=== PATIENT | female | born 1965 | race Hispanic/Latino ===

== ENCOUNTER → 2022-11-17 15:37 | Outpatient (CLI) | payer OTHER, MEDICAID, SELFPAY ==
--- NOTE | 2022-11-17 15:38 | DI.RAD.S_ITS ---
PROCEDURE: XR LUMBAR SPINE MIN 4V INDICATIONS: Low back pain TECHNIQUE: 5 views of the lumbar spine were acquired, including bilateral oblique views. COMPARISON: None. FINDINGS: Bones: 5 nonrib-bearing vertebrae are present. There is normal bony alignment. No vertebral body compression fractures. No suspicious bony lesions. Mild multilevel disc space narrowing and endplate osteophyte formation. Facet hypertrophy throughout the mid and lower lumbar spine. Soft tissues: Overlying bowel gas pattern is normal. No suspicious soft tissue calcifications. IMPRESSION: Multilevel degenerative disc and facet disease. No acute fracture. No osseous lesion. If symptoms and/or clinical suspicion for pathology persist, further assessment with repeat, or advanced imaging (e.g., CT, MRI, or bone scan) may be helpful for further assessment. Dictated by: Cherelle Fierro M.D. on 11/17/2022 at 16:30 Transcribed by: SUSAN on 11/17/2022 at 16:30 Approved by: Cherelle Fierro M.D. on 11/17/2022 at 16:58
== END ==
PROVIDERS: Referring Provider Nurse Practitioner Family; Visit Provider Nurse Practitioner Family
DX: M51.36 Other intervertebral disc degeneration, lumbar region (principal); M54.50 Low back pain, unspecified
CPT/HCPCS: 72110

== ENCOUNTER 2022-12-26 13:03 | Emergency (ER) | payer OTHER, MEDICAID, SELFPAY ==
[2022-12-26 13:13] VITALS: BP 119/58; PULSE 99; RESP 18; TEMP 37.1; O2SAT 99
--- NOTE | 2022-12-26 13:17 | DI.RAD.S_ITS ---
PROCEDURE: XR CHEST 2V INDICATIONS: cough, body aches, shortness of breath TECHNIQUE: 2 views of the chest were acquired. COMPARISON: None. FINDINGS: Surgical changes and devices: None. Lungs and pleura: Lungs are clear. No pleural effusions or pneumothorax. Mediastinum: Mediastinal contours are normal. Heart size is normal. Bones and chest wall: No suspicious bony abnormalities. Soft tissues appear unremarkable. IMPRESSION: No acute cardiopulmonary findings Approved by: Prabhu Morales M.D. on 12/26/2022 at 13:21
[2022-12-26] MEDS: ACETAMINOPHEN 325 MG TABLET 975 MG PO (13:31)
[2022-12-26 14:07] LABS: Influenza A - CEPHEID Flu A NEGATIVE (NEGATIVE); Influenza B - CEPHEID Flu B NEGATIVE (NEGATIVE); Respiratory Syncytial Virus Negative (Negative)
[2022-12-26 14:10] LABS: COVID-19 CEPHEID 4-PLEX PCR Negative (Negative)
[2022-12-26] MEDS: KETOROLAC 30 MG/ML VIAL 15 MG IV (15:17)
[2022-12-26] MEDS: LIDOCAINE PATCH 1 EACH ADH..PATCH TOP (15:18)
[2022-12-26] MEDS: SODIUM CHLORIDE 0.9% 1,000 ML 1000 ML IV (15:18)
[2022-12-26] MEDS: METOCLOPRAMIDE 10 MG/2 ML INJ IV (15:18)
[2022-12-26 15:22] VITALS: PULSE 73; O2SAT 97
[2022-12-26 15:24] LABS: Add Manual Diff / Slide Review NO; Basophils Absolute Auto 0 /uL (0-100); Basophils Percent Auto 0.7 % (0-2); Eosinophils Absolute Auto 0 /uL (0-450); Eosinophils Percent Auto 0.2 % (2-4); Hematocrit 40.7 % (36-46); Hemoglobin 13.8 g/dL (12.0-16.0); Lymphocytes Absolute Auto 1200 /uL (1100-4500); Lymphocytes Percent Auto 31.9 % (25-40); Mean Corpuscular HGB Conc 33.9 % (30-36); Mean Corpuscular Hemoglobin 29.2 PG (26-34); Mean Corpuscular Volume 86.3 fL (80-100); Monocytes Absolute Auto 500 /uL (0-900); Monocytes Percent Auto 13.5 % (3-14); Neutrophils Absolute Auto 2000 /uL (1500-7000); Neutrophils Percent Auto 53.7 % (50-75); Platelet Count 178 X10^3/uL (150-400); Red Blood Cell Count 4.71 X10^6/uL (4.0-5.2); Red Cell Distribution Width 14.2 % (11.6-14.8); White Blood Cell Count 3.6 X10^3/uL (4.5-11.0)
[2022-12-26 15:30] VITALS: PULSE 68; O2SAT 98
[2022-12-26] MEDS: diphenhydrAMINE 50 MG/ML VIAL 25 MG IV (15:32)
[2022-12-26 15:34] LABS: Alanine Aminotransferase 27 IU/L (<35); Albumin 4.3 g/dL (3.5-5.0); Albumin Globulin Ratio 1.2 (1.0-2.8); Alkaline Phosphatase 82 U/L (38-126); Aspartate Aminotransferase 29 IU/L (14-36); BUN Creatinine Ratio 14.7 (6-22); Bilirubin Total 0.4 mg/dL (0.2-1.3); Blood Urea Nitrogen 14 mg/dL (7-17); Calcium 8.6 mg/dL (8.4-10.2); Carbon Dioxide 26 mmol/L (22-32); Chloride 100 mmol/L (98-107); Creatine Kinase 62 U/L (30-135); Estimated Glomerular Filt Rate > 60 mL/min (>60); Globulin 3.7 g/dL (1.7-4.1); Glucose 110 mg/dL (70-100); HEMOLYSIS < 15 (0-50); Lipase 104 U/L (23-300); Potassium 3.5 mmol/L (3.4-5.1); Sodium 137 mmol/L (137-145)
[2022-12-26 15:46] LABS: NT-proBNP (BNP-Adult 18+) 24 pg/mL (<125); Troponin I < 0.012 ng/mL (0.01-0.034)
[2022-12-26 16:08] VITALS: PULSE 69; O2SAT 98
[2022-12-26 16:09] VITALS: BP 120/58; PULSE 67; O2SAT 99
--- NOTE | 2022-12-26 16:12 | ED.GENADULT ---
HPI - General Adult <William Hodgson PA-C - Last Filed: 12/26/22 20:45> General Chief complaint: Upper Respiratory Symptoms Stated complaint: hard to breathe/pain from head to feet Time Seen by Provider: 12/26/22 13:18 Source: patient Mode of arrival: Ambulatory History of Present Illness HPI narrative: 57-year-old female with no reported past medical history presents to the ED complaining of lower back pain and headache for the past 2 days. Patient denies fever, chills, rhinorrhea, cough, sore throat, shortness of breath, chest pain, nausea, vomiting, abdominal pain, dysuria, lightheadedness, dizziness, syncope. Patient denies numbness, tingling, weakness, saddle paresthesia, urinary hesitancy, urinary urgency, urinary frequency.. Patient has a history of lower back pain, had a x-ray done in October 2022 with no acute findings. Patient states she is had back pain for about 9 years, ever since she suffered a fall. No new trauma. Related Data Previous Rx's Medication Instructions Recorded ibuprofen 600 mg tablet 600 mg PO Q8H PRN pain #30 tabs 11/17/22 Allergies Allergy/AdvReac Type Severity Reaction Status Date / Time No Known Drug Allergies Allergy Verified 12/26/22 13:17 Review of Systems <William Hodgson PA-C - Last Filed: 12/26/22 20:45> Review of Systems ROS Unobtainable: All systems reviewed & are unremarkable except as noted in HPI and below Constitutional Constitutional: Denies chills, Reports fatigue, Denies fever(s), Denies frequent falls, Reports headache(s), Reports lethargy and Denies weakness Eyes Eyes: Denies change in vision, Denies eye discharge, Denies irritation and Denies loss of vision ENT Ears, Nose, Mouth, and Throat: Denies change in voice, Denies dizziness, Reports headache(s), Denies neck pain, Denies sore throat and Denies throat swelling Cardiovascular Cardiovascular: Denies chest pain, Denies irregular heart rhythm, Denies lightheadedness, Denies palpitations, Denies dyspnea, Denies dyspnea on exertion and Denies orthopnea Respiratory Respiratory: Denies cough, Denies dyspnea, Denies dyspnea on exertion and Denies wheezing Gastrointestinal Gastrointestinal: Denies abdominal pain, Denies change in bowel habits, Denies diarrhea, Denies nausea and Denies vomiting Genitourinary Genitourinary: Denies hematuria, Denies flank pain, Denies urinary incontinence and Denies urinary urgency Musculoskeletal Musculoskeletal: Reports back pain, Denies muscle weakness, Denies neck pain, Denies numbness and Denies tingling Integumentary/Breasts Skin/Breast: Denies pruritus, Denies erythema, Denies rash and Denies wounds Neurologic Neurologic: Denies behavioral changes, Denies confusion, Denies dizziness, Denies frequent falls, Reports headache(s), Denies loss of vision, Denies numbness, Denies tingling and Denies weakness Psychiatric Psychiatric: Denies anxiety, Denies behavioral changes, Denies confusion, Denies depression, Denies homicidal ideation and Denies suicidal ideation Endocrine Endocrine: Reports fatigue, Denies flushing and Denies palpitations Hematologic/Lymphatic Hematologic/Lymphatic: Denies easy bruising Allergic/Immunologic Allergic/Immunologic: Denies urticaria, Denies throat swelling and Denies wheezing Patient History <William Hodgson PA-C - Last Filed: 12/26/22 20:45> Social History Smoking Status: Never smoker Smoking Status: Never smoker alcohol intake frequency: 0-2 drinks per day Substance Use Type: does not use Exam <William Hodgson PA-C - Last Filed: 12/26/22 20:45> Narrative Exam Narrative: Const General:?cooperative, healthy appearing and comfortable [facility] Head:?normal to inspection Ears:?hearing grossly normal bilaterally Nose:?external nose normal Face and sinus:?normal facial exam and sinuses nontender Mouth:?oral mucosae normal Throat:?posterior oropharynx normal Eyes General:?appearance normal, both eyes and all related structures Neck Neck:?normal visual inspection and no lymphadenopathy noted Resp Effort & Inspection:?normal respiratory effort Auscultation:?clear to auscultation bilaterally Cardio Rate:?regular rate Rhythm:?regular rhythm Neuro General:?patient alert, patient awake and patient oriented x3; PERRLA; CN 1 through 12 intact bilaterally; Initial Vital Signs Initial Vital Signs: Vital Signs Temperature 98.7 F 12/26/22 13:13 Pulse Rate 99 H 12/26/22 13:13 Respiratory Rate 18 12/26/22 13:13 Blood Pressure 119/58 L 12/26/22 13:13 Pulse Oximetry 99 12/26/22 13:13 Oxygen Delivery Method Room Air 12/26/22 13:13 <Miky Burks MD - Last Filed: 01/02/23 08:05> Initial Vital Signs Initial Vital Signs: Vital Signs Temperature 98.7 F 12/26/22 13:13 Pulse Rate 99 H 12/26/22 13:13 Respiratory Rate 18 12/26/22 13:13 Blood Pressure 119/58 L 12/26/22 13:13 Pulse Oximetry 99 12/26/22 13:13 Oxygen Delivery Method Room Air 12/26/22 13:13 Course <William Hodgson PA-C - Last Filed: 12/26/22 20:45> Orders Ordered: Discontinued Medications Acetaminophen (Acetaminophen 325 Mg Tablet) 975 mg PO NOW ONE Stop: 12/26/22 13:18 Last Admin: 12/26/22 13:31 Dose: 975 mg Documented By: DRE Diphenhydramine HCl (Diphenhydramine 50 Mg/Ml Vial) 25 mg IV Q4HR PRN PRN Reason: Itching Last Admin: 12/26/22 15:32 Dose: 25 mg Documented By: DRE Sodium Chloride (Normal Saline 0.9%) 1,000 mls @ 1,000 mls/hr IV BOLUS ONE Stop: 12/26/22 15:50 Last Infusion: 12/26/22 16:20 Dose: 0 mls/hr Documented By: Admin: 12/26/22 15:18 Dose: 1,000 mls/hr Documented By: AMU Ketorolac Tromethamine (Ketorolac 30 Mg/Ml Vial) 15 mg IV NOW ONE Stop: 12/26/22 14:52 Last Admin: 12/26/22 15:17 Dose: 15 mg Documented By: AMU Lidocaine (Lidocaine Patch 1 Each Adh..Patch) 1 each TOP NOW ONE Stop: 12/26/22 14:54 Last Admin: 12/26/22 15:18 Dose: 1 each Documented By: AMU Metoclopramide HCl (Metoclopramide 10 Mg/2 Ml Inj) 10 mg IV NOW ONE Stop: 12/26/22 14:53 Last Admin: 12/26/22 15:18 Dose: 10 mg Documented By: AMU Vital Signs Vital signs: Vital Signs - 8 hr 12/26/22 13:13 12/26/22 15:22 12/26/22 15:30 Temperature 98.7 F Pulse Rate 99 H 73 68 Respiratory Rate 18 Blood Pressure 119/58 L Pulse Oximetry 99 97 98 Oxygen Delivery Method Room Air 12/26/22 16:08 12/26/22 16:09 12/26/22 16:09 Temperature Pulse Rate 69 67 Respiratory Rate Blood Pressure 120/58 L Pulse Oximetry 98 99 Oxygen Delivery Method Room Air 12/26/22 16:30 12/26/22 16:30 Temperature Pulse Rate 67 Respiratory Rate Blood Pressure 130/59 L Pulse Oximetry 100 Oxygen Delivery Method Room Air <Miky Burks MD - Last Filed: 01/02/23 08:05> Orders Ordered: Discontinued Medications Acetaminophen (Acetaminophen 325 Mg Tablet) 975 mg PO NOW ONE Stop: 12/26/22 13:18 Last Admin: 12/26/22 13:31 Dose: 975 mg Documented By: DRE Diphenhydramine HCl (Diphenhydramine 50 Mg/Ml Vial) 25 mg IV Q4HR PRN PRN Reason: Itching Last Admin: 12/26/22 15:32 Dose: 25 mg Documented By: DRE Sodium Chloride (Normal Saline 0.9%) 1,000 mls @ 1,000 mls/hr IV BOLUS ONE Stop: 12/26/22 15:50 Last Infusion: 12/26/22 16:20 Dose: 0 mls/hr Documented By: Admin: 12/26/22 15:18 Dose: 1,000 mls/hr Documented By: LIBIA Ketorolac Tromethamine (Ketorolac 30 Mg/Ml Vial) 15 mg IV NOW ONE Stop: 12/26/22 14:52 Last Admin: 12/26/22 15:17 Dose: 15 mg Documented By: LIBIA Lidocaine (Lidocaine Patch 1 Each Adh..Patch) 1 each TOP NOW ONE Stop: 12/26/22 14:54 Last Admin: 12/26/22 15:18 Dose: 1 each Documented By: LIBIA Metoclopramide HCl (Metoclopramide 10 Mg/2 Ml Inj) 10 mg IV NOW ONE Stop: 12/26/22 14:53 Last Admin: 12/26/22 15:18 Dose: 10 mg Documented By: AMU Vital Signs Vital signs: Vital Signs - 8 hr 12/26/22 13:13 12/26/22 15:22 12/26/22 15:30 Temperature 98.7 F Pulse Rate 99 H 73 68 Respiratory Rate 18 Blood Pressure 119/58 L Pulse Oximetry 99 97 98 Oxygen Delivery Method Room Air 12/26/22 16:08 12/26/22 16:09 12/26/22 16:09 Temperature Pulse Rate 69 67 Respiratory Rate Blood Pressure 120/58 L Pulse Oximetry 98 99 Oxygen Delivery Method Room Air 12/26/22 16:30 12/26/22 16:30 Temperature Pulse Rate 67 Respiratory Rate Blood Pressure 130/59 L Pulse Oximetry 100 Oxygen Delivery Method Room Air Medical Decision Making <William Hodgson PA-C - Last Filed: 12/26/22 20:45> Lab Data 12/26/22 15:16 12/26/22 15:16 Labs: Lab Results 12/26/22 12/26/22 12/26/22 Range/Units 13:18 15:16 15:16 WBC 3.6 L (4.5-11.0) X10^3/uL RBC 4.71 (4.0-5.2) X10^6/uL Hgb 13.8 (12.0-16.0) g/dL Hct 40.7 (36-46) % MCV 86.3 (80-100) fL MCH 29.2 (26-34) PG MCHC 33.9 (30-36) % RDW 14.2 (11.6-14.8) % Plt Count 178 (150-400) X10^3/uL Neut % (Auto) 53.7 (50-75) % Lymph % (Auto) 31.9 (25-40) % [place] % (Auto) 13.5 (3-14) % Eos % (Auto) 0.2 L (2-4) % Baso % (Auto) 0.7 (0-2) % Neut # (Auto) 2000 (2690-2561) /uL Lymph # (Auto) 1200 (3241-8413) /uL [place] # (Auto) 500 (0-900) /uL Eos # (Auto) 0 (0-450) /uL Baso # (Auto) 0 (0-100) /uL Sodium 137 (137-145) mmol/L Potassium 3.5 (3.4-5.1) mmol/L Chloride 100 (98-107) mmol/L Carbon Dioxide 26 (22-32) mmol/L BUN 14 (7-17) mg/dL Creatinine 0.95 (0.52-1.04) mg/dL Estimated GFR > 60 (>60) mL/min BUN/Creatinine Ratio 14.7 (6-22) Glucose 110 H (70-100) mg/dL Calcium 8.6 (8.4-10.2) mg/dL Total Bilirubin 0.4 (0.2-1.3) mg/dL AST 29 (14-36) IU/L ALT 27 (<35) IU/L Alkaline Phosphatase 82 (38-126) U/L Total Creatine Kinase 62 (30-135) U/L CK-MB (CK-2) TNP CK-MB (CK-2) Rel Index TNP Troponin I < 0.012 (0.01-0.034) ng/mL NT-Pro-B Natriuret Pep 24 (<125) pg/mL Total Protein 8.0 (6.3-8.2) g/dL Albumin 4.3 (3.5-5.0) g/dL Globulin 3.7 (1.7-4.1) g/dL Albumin/Globulin Ratio 1.2 (1.0-2.8) Lipase 104 (23-300) U/L Urine RBC (0-5/HPF) Urine WBC (0-5/HPF) Ur Squamous Epith Cells (0-5/HPF) Ur Transition Epith Cell (0-5/HPF) Ur Renal Epithelial Cell (0-1/HPF) Urine Bacteria (None) Ur Culture Indicated? SARS-CoV-2 (PCR) Negative (Negative) Influenza A (RT-PCR) Flu a negative (NEGATIVE) Influenza B (RT-PCR) Flu b negative (NEGATIVE) RSV (PCR) Negative (Negative) 12/26/22 Range/Units 16:13 WBC (4.5-11.0) X10^3/uL RBC (4.0-5.2) X10^6/uL Hgb (12.0-16.0) g/dL Hct (36-46) % MCV (80-100) fL MCH (26-34) PG MCHC (30-36) % RDW (11.6-14.8) % Plt Count (150-400) X10^3/uL Neut % (Auto) (50-75) % Lymph % (Auto) (25-40) % [place] % (Auto) (3-14) % Eos % (Auto) (2-4) % Baso % (Auto) (0-2) % Neut # (Auto) (0925-4989) /uL Lymph # (Auto) (4178-9048) /uL [place] # (Auto) (0-900) /uL Eos # (Auto) (0-450) /uL Baso # (Auto) (0-100) /uL Sodium (137-145) mmol/L Potassium (3.4-5.1) mmol/L Chloride (98-107) mmol/L Carbon Dioxide (22-32) mmol/L BUN (7-17) mg/dL Creatinine (0.52-1.04) mg/dL Estimated GFR (>60) mL/min BUN/Creatinine Ratio (6-22) Glucose (70-100) mg/dL Calcium (8.4-10.2) mg/dL Total Bilirubin (0.2-1.3) mg/dL AST (14-36) IU/L ALT (<35) IU/L Alkaline Phosphatase (38-126) U/L Total Creatine Kinase (30-135) U/L CK-MB (CK-2) CK-MB (CK-2) Rel Index Troponin I (0.01-0.034) ng/mL NT-Pro-B Natriuret Pep (<125) pg/mL Total Protein (6.3-8.2) g/dL Albumin (3.5-5.0) g/dL Globulin (1.7-4.1) g/dL Albumin/Globulin Ratio (1.0-2.8) Lipase (23-300) U/L Urine RBC 0-1/hpf (0-5/HPF) Urine WBC 5-10/hpf H (0-5/HPF) Ur Squamous Epith Cells 5-10 /hpf H (0-5/HPF) Ur Transition Epith Cell 10-30/hpf H (0-5/HPF) Ur Renal Epithelial Cell 0-1/hpf (0-1/HPF) Urine Bacteria Moderate (10-30) H (None) Ur Culture Indicated? Specimen cultured SARS-CoV-2 (PCR) (Negative) Influenza A (RT-PCR) (NEGATIVE) Influenza B (RT-PCR) (NEGATIVE) RSV (PCR) (Negative) Urine Dip Bedside Urine Glucose Negative Bedside Urine Bilirubin - Negative Bedside Urine Ketone - Negative Urine Specific [place] 1.005 Bedside Urine Occult Blood - Negative Bedside Urine pH 6.0 Bedside Urine Protein - Negative Bedside Urine Urobilinogen - Negative Bedside Urine Nitrite - Negative Bedside Urine Leukocytes ++ 125 Esterase Point of care testing: Urine Dip Bedside Urine Glucose Negative Bedside Urine Bilirubin - Negative Bedside Urine Ketone - Negative Urine Specific [place] 1.005 Bedside Urine Occult Blood - Negative Bedside Urine pH 6.0 Bedside Urine Protein - Negative Bedside Urine Urobilinogen - Negative Bedside Urine Nitrite - Negative Bedside Urine Leukocytes ++ 125 Esterase MDM Narrative Medical decision making narrative: 57-year-old female with no reported past medical history presents to the ED complaining of lower back pain and headache for the past 2 days. Physical exam is reassuring, patient is neurologically intact. Concern for ACS versus primary headache versus musculoskeletal sprain/strain versus URI versus UTI versus other. Will obtain labs, EKG, chest x-ray, troponin, UA, will treat headache and back pain with Toradol, Tylenol, IV fluids, Reglan, Benadryl. Will reassess. Patient's workup was unremarkable. EKG was normal sinus rhythm, no acute ST-T changes. Labs, chest x-ray within normal limits. UA was positive for a UTI. Patient's symptoms significantly improved with IV fluids, Toradol, Tylenol, Reglan, Benadryl. Discussed findings with patient. Prescribed antibiotics for the UTI. Patient agrees to follow-up with the PCP. ED return precautions were discussed with patient. Patient verbalized understanding. Medical records reviewed: Yes <Miky Burks MD - Last Filed: 01/02/23 08:05> Lab Data Labs: Lab Results 12/26/22 12/26/22 12/26/22 Range/Units 13:18 15:16 15:16 WBC 3.6 L (4.5-11.0) X10^3/uL RBC 4.71 (4.0-5.2) X10^6/uL Hgb 13.8 (12.0-16.0) g/dL Hct 40.7 (36-46) % MCV 86.3 (80-100) fL MCH 29.2 (26-34) PG MCHC 33.9 (30-36) % RDW 14.2 (11.6-14.8) % Plt Count 178 (150-400) X10^3/uL Neut % (Auto) 53.7 (50-75) % Lymph % (Auto) 31.9 (25-40) % [place] % (Auto) 13.5 (3-14) % Eos % (Auto) 0.2 L (2-4) % Baso % (Auto) 0.7 (0-2) % Neut # (Auto) 2000 (5729-8969) /uL Lymph # (Auto) 1200 (9856-0321) /uL [place] # (Auto) 500 (0-900) /uL Eos # (Auto) 0 (0-450) /uL Baso # (Auto) 0 (0-100) /uL Sodium 137 (137-145) mmol/L Potassium 3.5 (3.4-5.1) mmol/L Chloride 100 (98-107) mmol/L Carbon Dioxide 26 (22-32) mmol/L BUN 14 (7-17) mg/dL Creatinine 0.95 (0.52-1.04) mg/dL Estimated GFR > 60 (>60) mL/min BUN/Creatinine Ratio 14.7 (6-22) Glucose 110 H (70-100) mg/dL Calcium 8.6 (8.4-10.2) mg/dL Total Bilirubin 0.4 (0.2-1.3) mg/dL AST 29 (14-36) IU/L ALT 27 (<35) IU/L Alkaline Phosphatase 82 (38-126) U/L Total Creatine Kinase 62 (30-135) U/L CK-MB (CK-2) TNP CK-MB (CK-2) Rel Index TNP Troponin I < 0.012 (0.01-0.034) ng/mL NT-Pro-B Natriuret Pep 24 (<125) pg/mL Total Protein 8.0 (6.3-8.2) g/dL Albumin 4.3 (3.5-5.0) g/dL Globulin 3.7 (1.7-4.1) g/dL Albumin/Globulin Ratio 1.2 (1.0-2.8) Lipase 104 (23-300) U/L Urine RBC (0-5/HPF) Urine WBC (0-5/HPF) Ur Squamous Epith Cells (0-5/HPF) Ur Transition Epith Cell (0-5/HPF) Ur Renal Epithelial Cell (0-1/HPF) Urine Bacteria (None) Ur Culture Indicated? SARS-CoV-2 (PCR) Negative (Negative) Influenza A (RT-PCR) Flu a negative (NEGATIVE) Influenza B (RT-PCR) Flu b negative (NEGATIVE) RSV (PCR) Negative (Negative) 12/26/22 Range/Units 16:13 WBC (4.5-11.0) X10^3/uL RBC (4.0-5.2) X10^6/uL Hgb (12.0-16.0) g/dL Hct (36-46) % MCV (80-100) fL MCH (26-34) PG MCHC (30-36) % RDW (11.6-14.8) % Plt Count (150-400) X10^3/uL Neut % (Auto) (50-75) % Lymph % (Auto) (25-40) % [place] % (Auto) (3-14) % Eos % (Auto) (2-4) % Baso % (Auto) (0-2) % Neut # (Auto) (6896-0965) /uL Lymph # (Auto) (3624-1208) /uL [place] # (Auto) (0-900) /uL Eos # (Auto) (0-450) /uL Baso # (Auto) (0-100) /uL Sodium (137-145) mmol/L Potassium (3.4-5.1) mmol/L Chloride (98-107) mmol/L Carbon Dioxide (22-32) mmol/L BUN (7-17) mg/dL Creatinine (0.52-1.04) mg/dL Estimated GFR (>60) mL/min BUN/Creatinine Ratio (6-22) Glucose (70-100) mg/dL Calcium (8.4-10.2) mg/dL Total Bilirubin (0.2-1.3) mg/dL AST (14-36) IU/L ALT (<35) IU/L Alkaline Phosphatase (38-126) U/L Total Creatine Kinase (30-135) U/L CK-MB (CK-2) CK-MB (CK-2) Rel Index Troponin I (0.01-0.034) ng/mL NT-Pro-B Natriuret Pep (<125) pg/mL Total Protein (6.3-8.2) g/dL Albumin (3.5-5.0) g/dL Globulin (1.7-4.1) g/dL Albumin/Globulin Ratio (1.0-2.8) Lipase (23-300) U/L Urine RBC 0-1/hpf (0-5/HPF) Urine WBC 5-10/hpf H (0-5/HPF) Ur Squamous Epith Cells 5-10 /hpf H (0-5/HPF) Ur Transition Epith Cell 10-30/hpf H (0-5/HPF) Ur Renal Epithelial Cell 0-1/hpf (0-1/HPF) Urine Bacteria Moderate (10-30) H (None) Ur Culture Indicated? Specimen cultured SARS-CoV-2 (PCR) (Negative) Influenza A (RT-PCR) (NEGATIVE) Influenza B (RT-PCR) (NEGATIVE) RSV (PCR) (Negative) Urine Dip Bedside Urine Glucose Negative Bedside Urine Bilirubin - Negative Bedside Urine Ketone - Negative Urine Specific [place] 1.005 Bedside Urine Occult Blood - Negative Bedside Urine pH 6.0 Bedside Urine Protein - Negative Bedside Urine Urobilinogen - Negative Bedside Urine Nitrite - Negative Bedside Urine Leukocytes ++ 125 Esterase Point of care testing: Urine Dip Bedside Urine Glucose Negative Bedside Urine Bilirubin - Negative Bedside Urine Ketone - Negative Urine Specific [place] 1.005 Bedside Urine Occult Blood - Negative Bedside Urine pH 6.0 Bedside Urine Protein - Negative Bedside Urine Urobilinogen - Negative Bedside Urine Nitrite - Negative Bedside Urine Leukocytes ++ 125 Esterase Discharge Plan Departure Patient Disposition: Home Clinical Impression: UTI (urinary tract infection) Instructions: DI for Urinary Tract Infection (UTI) Activity Restrictions/Additional Instructions: You were evaluated in the ED today for a headache and back pain. Your labs, chest x-ray, EKG were normal. Your urine shows that you have a urinary tract infection, for which you are being prescribed an antibiotic. Please take the antibiotic as prescribed. Your headache and back pain improved with the medications in the ED. You may also take ibuprofen, Tylenol for your back pain and headache. Please return to the ED if you experience chest pain, shortness of breath, numbness, tingling, weakness. Prescriptions: No Action ibuprofen 600 mg tablet 600 mg PO Q8H PRN (Reason: pain) Qty: 30 0RF Referrals: Miscellaneous,Doctor, [Primary Care Provider] - Stand Alone Forms: Patient Portal/API <Miky Burks MD - Last Filed: 01/02/23 08:05> Cosign ED Attending Karinaature Attestation: I was immediately available in the department for consultation. ?This documentation has been reviewed and I agree with assessment and plan. Supervised by Mkiy Burks MD
[2022-12-26 16:30] VITALS: BP 130/59; PULSE 67; O2SAT 100
[2022-12-26 16:36] LABS: Bacteria Urine Moderate (10-30); Culture Indicated Urine Specimen Cultured; RBC Urine 0-1/HPF (0-5/HPF); Renal Epithelial Cells Urine 0-1/HPF (0-1/HPF); Squamous Epithelial Cell Urine 5-10 /HPF (0-5/HPF); Transitional Epi Cells Urine 10-30/HPF (0-5/HPF); WBC Urine 5-10/HPF (0-5/HPF)
== END 2022-12-26 17:05 | disposition home or self-care (01) ==
PROVIDERS: Emergency Medicine; Emergency Provider Student in an Organized Health Care Education/Training Program
DX: N39.0 Urinary tract infection, site not specified (principal); R07.9 Chest pain, unspecified; Z20.822 Contact with and (suspected) exposure to COVID-19
CPT/HCPCS: 0241U; 36415; 71046; 80053; 81003; 81015; 82550; 83690; 83880; 84484; 85025; 87086; 93005; 96361; 96374; 96375; 99284; J1200; J1885; J2765

== ENCOUNTER → 2023-01-04 14:57 | Outpatient (CLI) | payer OTHER, MEDICAID, SELFPAY ==
--- NOTE | 2023-01-04 | DI.RAD.S_ITS ---
PROCEDURE: XR CERVICAL SPINE 2V OR 3V INDICATIONS: neck pain TECHNIQUE: 3 view(s) of the cervical spine were acquired. COMPARISON: None. FINDINGS: Bones: No fractures or dislocations to the C7 level. The lateral masses of C1 appear intact on the odontoid view. No suspicious bony lesions. Multilevel disc space narrowing and endplate osteophyte formation, worst at C5-C6, indicating degenerative disc disease. Facet hypertrophy throughout the mid and lower cervical spine. Soft tissues: No prevertebral soft tissue swelling. IMPRESSION: 1. Multilevel degenerative disc and facet disease. 2. No acute fracture. No osseous lesion. If symptoms and/or clinical suspicion for pathology persist, further assessment with repeat, or advanced imaging (e.g., CT, MRI, or bone scan) may be helpful for further assessment. Dictated by: Cherelle Fierro M.D. on 01/04/2023 at 16:13 Transcribed by: SUSAN on 01/04/2023 at 16:14 Approved by: Cherelle Fierro M.D. on 01/04/2023 at 16:40
== END ==
PROVIDERS: Family Provider Registered Nurse; PCP Registered Nurse; Referring Provider Registered Nurse; Visit Provider Registered Nurse
DX: M50.322 Other cervical disc degeneration at C5-C6 level (principal)
CPT/HCPCS: 72040

== ENCOUNTER → 2023-03-19 17:16 | Outpatient (CLI) | payer OTHER, MEDICAID, SELFPAY ==
--- NOTE | 2023-03-19 17:18 | DI.RAD.S_ITS ---
PROCEDURE: XR CHEST 2V INDICATIONS: PPD test result was 20mm. TECHNIQUE: 2 views of the chest were acquired. COMPARISON: [facility], CR, XR CHEST 2V, 12/26/2022, 13:31. FINDINGS: Surgical changes and devices: None. Lungs and pleura: Lungs are clear. No pleural effusions or pneumothorax. Mediastinum: Mediastinal contours are normal. Heart size is normal. Bones and chest wall: No suspicious bony abnormalities. Soft tissues appear unremarkable. IMPRESSION: No acute cardiopulmonary disease. Dictated by: Erna Parry M.D. on 03/20/2023 at 11:40 Approved by: Erna Parry M.D. on 03/20/2023 at 11:41
== END ==
PROVIDERS: Family Provider Registered Nurse; PCP Registered Nurse; Visit Provider Physician Assistant
DX: R76.11 Nonspecific reaction to tuberculin skin test without active tuberculosis (principal)
CPT/HCPCS: 71046

== ENCOUNTER 2023-04-01 08:29 | Emergency (ER) | payer OTHER, MEDICAID, SELFPAY ==
[2023-04-01 08:39] VITALS: BP 138/62; PULSE 65; RESP 16; TEMP 36.2; O2SAT 99; BMI 23.7
--- NOTE | 2023-04-01 08:44 | DI.RAD.S_ITS ---
PROCEDURE: XR KNEE LT 3V INDICATIONS: L knee pain TECHNIQUE: 3 views of the knee were acquired. COMPARISON: None. FINDINGS: Bones: No fractures or dislocations. No suspicious bony lesions. Mild degenerative spurring of the patellofemoral compartment. Soft tissues: Likely small joint effusion. No suspicious soft tissue calcifications. Prominent vascular structures likely representing varicose veins within the soft tissues of the lower extremity. IMPRESSION: Mild patellofemoral joint degenerative changes without acute osseous abnormality. Likely small joint effusion. Varicose veins. Dictated by: Luis Johnston D.O. on 04/01/2023 at 8:06 Approved by: Luis Johnston D.O. on 04/01/2023 at 8:09
--- NOTE | 2023-04-01 08:52 | ED.LOWEXIN ---
HPI - Extremity Injury (Lower) General Chief Complaint: Extremity Injury, Lower Stated Complaint: lt knee pain, swelling Time Seen by Provider: 04/01/23 08:48 History of Present Illness HPI Narrative: Patient is a 57-year-old female Malaysian-speaking, interprets for her, no significant past medical history although she did just have a positive PPD test on 03/16/2023 without symptoms presents today with left knee pain. She reports that it has been chronic ongoing pain for your more. It hurts whenever she bears weight. She reports that it has been little bit more swollen. It is not erythematous. She has chronic varicose veins for which she wears compression socks. However she points to the knee itself and not the calf or the veins. Related Data Previous Rx's Medication Instructions Recorded ibuprofen 600 mg tablet 600 mg PO Q8H PRN pain #30 tabs 11/17/22 tramadol 50 mg tablet 50 mg PO Q6H PRN pain #10 tabs 04/01/23 Allergies Allergy/AdvReac Type Severity Reaction Status Date / Time No Known Drug Allergies Allergy Verified 12/26/22 13:17 Review of Systems Review of Systems ROS Unobtainable: All systems reviewed & are unremarkable except as noted in HPI and below Patient History Social History Smoking Status: Never smoker Smoking Status: Never smoker alcohol intake frequency: 0-2 drinks per day Substance Use Type: does not use Exam Initial Vital Signs Initial Vital Signs: Vital Signs Temperature 97.1 F L 04/01/23 08:39 Pulse Rate 65 04/01/23 08:39 Respiratory Rate 16 04/01/23 08:39 Blood Pressure 138/62 04/01/23 08:39 Pulse Oximetry 99 04/01/23 08:39 Oxygen Delivery Method Room Air 04/01/23 08:39 GENERAL: Alert pleasant well-appearing 57-year-old female CARDIOVASCULAR: peripheral pulses in tact, cap refill <2 sec RESPIRATORY: No respiratory distress, speaks in full sentences without difficulty EXTREMITIES: Normal range of motion, no clubbing or edema. Neurovascularly intact Left knee minimally swollen no erythema full range of motion. Distal pedal pulse is strong. NEUROLOGICAL: Cranial nerves II through XII grossly intact. Normal gait and speech. SKIN: Warm, dry, no petechiae, no rashes or lesions. Significant varicose veins all along left leg with chronic discoloration left anterior adorno. Course Orders Ordered: Discontinued Medications Ketorolac Tromethamine (Ketorolac 30 Mg/Ml Vial) 15 mg IV NOW ONE Stop: 04/01/23 08:46 Last Admin: 04/01/23 08:58 Dose: 15 mg Documented By: NEVIN Vital Signs Vital signs: Vital Signs - 8 hr 04/01/23 08:39 Temperature 97.1 F L Pulse Rate 65 Respiratory Rate 16 Blood Pressure 138/62 Pulse Oximetry 99 Oxygen Delivery Method Room Air MDM - Extremity Injury (Lower) Imaging Data Extremity x-ray #1: Radiologist's Impression: PROCEDURE:? XR KNEE LT 3V ? INDICATIONS:? L knee pain ? TECHNIQUE:? 3 views of the knee were acquired.? ? COMPARISON:? None. ? FINDINGS:? ? Bones:? No fractures or dislocations.? No suspicious bony lesions.? Mild degenerative spurring of the patellofemoral compartment. ? Soft tissues:? Likely small joint effusion.? No suspicious soft tissue calcifications.? Prominent vascular structures likely representing varicose veins within the soft tissues of the lower extremity. ? ? IMPRESSION:? ? Mild patellofemoral joint degenerative changes without acute osseous abnormality. ? Likely small joint effusion. ? Varicose veins. ? ? Dictated by: Luis Johnston D.O. on 04/01/2023 at 8:06 ? ? [facility] Narrative Medical decision making narrative: Patient 57-year-old female with left knee pain and chronic ongoing varicose veins. Knee is minimally swollen no erythema x-ray shows arthritis. She unfortunately left awaiting for her x-ray result she was called back and quickly came back. We talked about pain management. She seems to be okay with Tylenol ibuprofen but may need something more. She is given tramadol for worsening pain. Recommended that she call Orthopedics to schedule follow-up appointment. Discharge Plan Departure Patient Disposition: Home Clinical Impression: Arthritis Instructions: DI for Osteoarthritis Activity Restrictions/Additional Instructions: Tienes artritis Puedes elevarte y hacer hielo 20-30 minutos Recomienda usar tiffanie rodillera mientras estas activo Se fomenta la actividad ligera, no hay actividad extenuante Tyleonl 650mg cada 4-6 horas si es necesario para el dolor de leve a moderado Tramadol 50mg cada 6 horas olo si es necesario para el dolor intenso. [place] causa smnolencia y estrenimiento (SENT TO [facility]) Por favor, amalia un seguimiento con tiffanie llamada de ortopedia para programar en 2-3 ndiaye. Si tienes un aumento dedolor, enrojecimento, fiebre o no puedes caminar, por favor vuelva al departamento de emergencias You have arthritis Recommend elevating and icing 20-30 minutes Recommend using a knee brace while active Light activity is encouraged no strenuous activity Tylenol 650 mg every 4-6 hours if needed for [id number] pain Tramadol 50 mg every 6 hours only if needed for severe pain Please follow-up with orthopedics call to schedule in 2-3 days If you should have increasing pain redness fever or you can not walk please return to emergency department Prescriptions: New tramadol 50 mg tablet 50 mg PO Q6H PRN (Reason: pain) Qty: 10 0RF No Action ibuprofen 600 mg tablet 600 mg PO Q8H PRN (Reason: pain) Qty: 30 0RF Referrals: [facility] [Provider Group] Mora Marte ARNP [Primary Care Provider] - Stand Alone Forms: Patient Portal/API
[2023-04-01] MEDS: KETOROLAC 30 MG/ML VIAL 15 MG IV (08:58)
[2023-04-01 10:10] VITALS: BP 113/67; PULSE 66; O2SAT 98
== END 2023-04-01 10:25 | disposition home or self-care (01) ==
PROVIDERS: Emergency Provider Emergency Medicine; Family Provider Registered Nurse; PCP Registered Nurse
DX: M17.12 Unilateral primary osteoarthritis, left knee (principal)
CPT/HCPCS: 73562; 96374; 99283; 99284; J1885

== ENCOUNTER 2023-04-15 08:30 | Emergency (ER) | payer OTHER, MEDICAID, SELFPAY ==
[2023-04-15 08:43] VITALS: BP 170/74; PULSE 86; RESP 16; TEMP 36.4; O2SAT 97; BMI 24.9
--- NOTE | 2023-04-15 08:57 | ED.HA ---
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 She denies any acute vision changes but notes that she is had to start wearing her glasses all of the time instead of sometimes. Patient states she is felt subjectively warm will use a cold cloth when she has a headache. She has not had any fevers otherwise. No chest pain, no shortness of breath, she denies nausea or vomiting. No diaphoresis. No syncope. No dizziness or vertigo. She also notes some right shoulder pain that radiates down her arm with tingling particularly at nighttime and when she awakens in the morning. She also noticed some left hip pain that has been intermittent and present for some time. Patient states no dysuria, urgency or frequency. No incontinence. No diarrhea, constipation or other GI symptoms. Patient denies numbness, tingling or weakness to her extremities. No difficulty with ambulation. Patient states she had some similar issues about 3 weeks ago states she was seen here. She states she was given a prescription for some medication which does not really seem to take her headache away makes her groggy the next day. Patient states no daily medications, denies any medical issues. She was told by a physician that she was anemic but then it was not major. She denies any prior surgeries. No known drug allergies. No tobacco, alcohol or illicit. She does have a primary care that she follows with Mora Marte. Patient is accompanied by her spouse. Related Data Previous Rx's Medication Instructions Recorded ibuprofen 600 mg tablet 600 mg PO Q8H PRN pain #30 tabs 11/17/22 tramadol 50 mg tablet 50 mg PO Q6H PRN pain #10 tabs 04/01/23 oxycodone 5 mg tablet 5 mg PO Q6H PRN pain #10 tabs 04/15/23 Allergies Allergy/AdvReac Type Severity Reaction Status Date / Time No Known Drug Allergies Allergy Verified 12/26/22 13:17 Review of Systems Review of Systems ROS Unobtainable: All systems reviewed & are unremarkable except as noted in HPI and below Patient History Social History Smoking Status: Never smoker Smoking Status: Never smoker alcohol intake frequency: 0-2 drinks per day Substance Use Type: does not use Exam Narrative Exam Narrative: GEN: well nourished, well appearing female, alert and oriented x 3, patient appears to be in mild distress. HEENT: Atraumatic, pupils are equal round reactive to light, extraocular movements are intact, nares are clear, TMs are clear with no fluid, there is no conjunctival pallor. Throat is clear without any exudates, erythema, tonsillar enlargement or uvular deviation, no facial droop. HEART: Regular rate and rhythm without murmur, clicks, rubs. Pulses are equal in upper extremities LUNGS:Lungs clear to auscultation, no wheezes, rales, crackles, chest moves symmetrically, no tachypnea accessory muscle use ABD:bowel sounds normal, soft, non-tender, no guarding, rebound, rigidity, no masses noted, no hepatosplenomegaly :No CVA tenderness BACK: No cervical, thoracic or lumbar vertebral point tenderness. Patient has normal range of motion. MSCL: Non-tender, no muscle atrophy, muscles strength 5/5 upper and lower extremities, full range of motion, normal gait NEURO:CN 2-12 intact, sensation normal, reflexes 2/4 upper and lower extremities. finger nose finger test normal, heel adorno test normal, romberg normal SKIN: No rash, erythema or other skin changes Initial Vital Signs Initial Vital Signs: Vital Signs Temperature 97.5 F L 04/15/23 08:43 Pulse Rate 86 04/15/23 08:43 Respiratory Rate 16 04/15/23 08:43 Blood Pressure 170/74 H 04/15/23 08:43 Pulse Oximetry 97 04/15/23 08:43 Oxygen Delivery Method Room Air 04/15/23 08:43 Course Orders Ordered: ED Orders 04/15/23 09:00 CT angio head and neck Stat XR chest 1V Stat EKG-12 Lead Stat 04/15/23 09:03 Complete Blood Count AUTO DIFF Stat Comprehensive Metabolic Panel Stat Lipase Stat Troponin & CK Cardiac Panel Stat Discontinued Medications Sodium Chloride (Normal Saline 0.9%) 1,000 mls @ 1,000 mls/hr IV BOLUS ONE Stop: 04/15/23 09:59 Last Infusion: 04/15/23 10:39 Dose: 0 mls/hr Documented By: Admin: 04/15/23 09:35 Dose: 1,000 mls/hr Documented By: NR Ketorolac Tromethamine (Ketorolac 30 Mg/Ml Vial) 15 mg IV NOW ONE Stop: 04/15/23 09:02 Last Admin: 04/15/23 09:34 Dose: 15 mg Documented By: NR Metoclopramide HCl (Metoclopramide 10 Mg/2 Ml Inj) 10 mg IV NOW ONE Stop: 04/15/23 11:37 Last Admin: 04/15/23 11:46 Dose: 10 mg Documented By: NR Vital Signs Vital signs: Vital Signs - 8 hr 04/15/23 08:43 Temperature 97.5 F L Pulse Rate 86 Respiratory Rate 16 Blood Pressure 170/74 H Pulse Oximetry 97 Oxygen Delivery Method Room Air MDM - Headache Lab Data 04/15/23 09:03 04/15/23 09:03 Labs: Lab Results 04/15/23 04/15/23 Range/Units 09:03 09:03 WBC 4.3 L (4.5-11.0) X10^3/uL RBC 4.80 (4.0-5.2) X10^6/uL Hgb 14.4 (12.0-16.0) g/dL Hct 42.1 (36-46) % MCV 87.7 (80-100) fL MCH 29.9 (26-34) PG MCHC 34.1 (30-36) % RDW 14.0 (11.6-14.8) % Plt Count 229 (150-400) X10^3/uL Neut % (Auto) 52.7 (50-75) % Lymph % (Auto) 38.0 (25-40) % [place] % (Auto) 6.8 (3-14) % Eos % (Auto) 1.8 L (2-4) % Baso % (Auto) 0.7 (0-2) % Neut # (Auto) 2300 (0012-9646) /uL Lymph # (Auto) 1600 (1599-4510) /uL [place] # (Auto) 300 (0-900) /uL Eos # (Auto) 100 (0-450) /uL Baso # (Auto) 0 (0-100) /uL Sodium 140 (137-145) mmol/L Potassium 3.6 (3.4-5.1) mmol/L Chloride 103 (98-107) mmol/L Carbon Dioxide 30 (22-32) mmol/L BUN 12 (7-17) mg/dL Creatinine 0.70 (0.52-1.04) mg/dL Estimated GFR > 60 (>60) mL/min BUN/Creatinine Ratio 17.1 (6-22) Glucose 148 H (70-100) mg/dL Calcium 9.3 (8.4-10.2) mg/dL Total Bilirubin 0.8 (0.2-1.3) mg/dL AST 33 (14-36) IU/L ALT 38 H (<35) IU/L Alkaline Phosphatase 78 (38-126) U/L Total Creatine Kinase 88 (30-135) U/L CK-MB (CK-2) TNP CK-MB (CK-2) Rel Index TNP Troponin I < 0.012 (0.01-0.034) ng/mL Total Protein 8.0 (6.3-8.2) g/dL Albumin 4.4 (3.5-5.0) g/dL Globulin 3.6 (1.7-4.1) g/dL Albumin/Globulin Ratio 1.2 (1.0-2.8) Lipase 127 (23-300) U/L Urine Dip Bedside Urine Glucose Negative Bedside Urine Bilirubin - Negative Bedside Urine Ketone - Negative Bedside Urine Occult Blood - Negative Bedside Urine Protein - Negative Bedside Urine Urobilinogen - Negative Bedside Urine Nitrite - Negative Bedside Urine Leukocytes - Negative Esterase Imaging Data CTA - brain/neck: Radiologist's Impression: Close Head/Neck CTA (Signed) Prabhu Morales - 04/15/23 Chest X-Ray (Signed) Prabhu Morales - 04/15/23 Knee X-Ray (Signed) Luis Johnston - 04/01/23 Chest X-Ray (Signed) Erna Parry - 03/19/23 Cervical Spine X-Ray (Signed) Cherelle Fierro - 01/04/23 Chest X-Ray (Signed) Prabhu Morales - 12/26/22 Lumbar Spine X-Ray (Signed) Santy Fierroleonardo - 11/17/22 [place] [address] CT Scan Report Signed Patient: Evelin Rodríguez MR#: [id number] : 1965 Acct:[id number] Age/Sex: 57 / F Date of Service: 04/15/23 Loc: ED Accession Number: [id number] ?? Procedure: CT angio head and neck Ordering Provider: Scarlet Barker D.O. PROCEDURE:? CT ANGIO HEAD AND NECK with contrast, CT brain with and without contrast ? INDICATIONS:? golden, keeping awake ? TECHNIQUE:? Pre-contrast 4.5 mm thick sections acquired from the foramen magnum to the vertex.? After the administration of intravenous contrast, 1 mm thick sections acquired from the aortic arch through the [place] of [place].? Post-contrast 4.5 mm thick sections then re-acquired from the foramen magnum to the vertex.? MIP reformats of the arterial vasculature were utilized.? For radiation dose reduction, the following was used:? automated exposure control, adjustment of mA and/or kV according to patient size.? ? COMPARISON:? None. ? FINDINGS:? Image quality:? Excellent.? ? BRAIN:? CSF spaces:? Ventricles are normal in size and shape.? Basal cisterns are patent.? No extra-axial fluid collections.? ? Brain:? No midline shift.? No intracranial bleeds or masses.? Morales-white matter interface appears intact.? ? Skull and face:? Calvarium and facial bones appear intact, without suspicious lesions.? Orbits appear normal.? ? Sinuses:? Sinuses and mastoids are clear.? ? HEAD CT ANGIOGRAPHY:? Anterior circulation:? Intracranial internal carotid arteries are normal in size and flow.? The flow within the paired anterior cerebral arteries is normal and symmetric.? The flow within the middle cerebral arteries is normal and symmetric.? The anterior communicating artery is seen.? No aneurysms are seen.? ? Posterior circulation:? Visualized portions of the vertebral arteries demonstrate normal caliber, and join to form a normal appearing basilar artery.? Flow within the posterior cerebral arteries is normal and symmetric.? No aneurysms are seen.? ? NECK CT ANGIOGRAPHY:? Carotid system:? The great vessels demonstrate a conventional anatomy as they arise from the aortic arch.? The origins of the common carotid arteries appear patent.? The common carotid arteries demonstrate normal caliber and courses.? The bifurcation regions are both widely patent.? The internal carotid arteries demonstrate normal calibers and courses.? ? Posterior circulation:? The origins of the vertebral arteries both appear widely patent.? The more superior extracranial portions of both vertebral arteries also demonstrate normal courses and calibers.? They join to form a normal appearing basilar artery.? ? Soft tissues:? Visualized neck soft tissues demonstrate no suspicious abnormalities.? ? Bones:? No suspicious bony lesions.? Visualized cervical spine appears normally aligned.? IMPRESSION:? ? Unremarkable CT brain with and without contrast.? No intracranial hemorrhage or mass effect. ? Unremarkable CT angiogram head and neck without large vessel occlusion, aneurysm or vascular malformation ? Any quantitative measurements of stenosis were performed using NASCET criteria.? Approved by: Prabhu Morales M.D. on 04/15/2023 at 9:16? Chest x-ray: Radiologist's Impression: [place] [address] XRay Report Signed Patient: Evelin Rodríguez MR#: [id number] : 1965 Acct:[id number] Age/Sex: 57 / F Date of Service: 04/15/23 Loc: Accession Number: [id number] ?? Procedure: XR chest 1V Ordering Provider: Scarlet Barker D.O. PROCEDURE:? XR CHEST 1V ? INDICATIONS:? golden, body aches ? TECHNIQUE:? One view of the chest was acquired.? ? COMPARISON:? [facility], CR, XR CHEST 2V, 03/19/2023, 17:14. ? FINDINGS:? ? Surgical changes and devices:? None.? ? Lungs and pleura:? Lungs are clear.? No pleural effusions or pneumothorax.? ? Mediastinum:? Mediastinal contours appear normal.? Heart size is normal.? ? Bones and chest wall:? No suspicious bony lesions.? Overlying soft tissues appear unremarkable.? ? IMPRESSION:? No acute cardiopulmonary findings ? ? ? Approved by: Prabhu Morales M.D. on 04/15/2023 at 9:13? ECG Data Attestation: I personally reviewed and interpreted this ECG as follows: Interpretation: Sinus rhythm rate of 67 OR 128 QRS 80 QTC 554. No acute change compared to 01/23/2023. [facility] Narrative Medical decision making narrative: This is a 57-year-old female with no reported medical issues does have some arthritic changes on old imaging has had headaches which radiate from the back to the front for several days on so much like tension headaches but patient states it has been keeping her from sleep. She states she is had similar issues about 3 weeks ago. She denies any other acute neurologic changes. She does have discomfort in her right shoulder and sometimes numbness tingling or arm particularly when she awakens from sleep and some hip and joint pain in her back. She has had imaging of her knee and back in the past which show arthritic changes. Patient states her blood count was low at some point but old labs from November 2022 were appropriate. Patient's exam is overall reassuring but was discussed with the symptoms infectious source seems less likely, CT head and neck angio, labs, urine, EKG were obtained. Imaging is negative, patient's labs shows slight leukopenia, no other acute changes, CMP is negative, troponins negative with no acute EKG changes. Urine does not show any signs of infection. Patient's old imaging does show multiple degenerative changes consistent with sounds like some radiculopathy of her right upper extremity low back pain. Discussed with patient the description of her headache radiating up and around with no rash skin changes, she is been afebrile with no other clear infectious changes no acute neurologic changes makes me suspicious more for tension headaches or discomfort. Discussed options for medication, she should follow up with her primary care. 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 Discharge Plan Departure Patient Disposition: Home Clinical Impression: Headache Instructions: DI for Headache Activity Restrictions/Additional Instructions: Please follow up with your physician, call to set up an appointment in the next week. If you are using your glasses more frequently this may also be contributing to your headaches and I would recommend following up with an laundry worker or an eye doctor to have you eyes checked. Your workup today and on past visits shows multiple arthritic changes to your neck or lower back which are likely causing some of the discomfort in your in lower back region. If this is persistent and not responding to oral medication follow-up with your physician for further workup such as PT, possibly MRI imaging or other work up as needed. You may continue with ibuprofen 600 mg every 6 hours and/or Tylenol up to a 1000 mg every 6 hours. If not enough you can take oxycodone 1-2 tablets every 6 hours as needed. This medication can make you sleepy do not drive, perform hazardous activities or make any major decisions while taking it. This medication will make you constipated please take a stool softener once to twice daily until stools are soft and regular. Sent to [facility] in [place]. Please return for fevers, headaches that are persisting or rapidly worsening, passing out, sudden vision changes, persistent vomiting, lightheadedness, new numbness, tingling weakness, loss of bowel or bladder control or other new or concerning changes. Prescriptions: New oxycodone 5 mg tablet 5 mg PO Q6H PRN (Reason: pain) Qty: 10 0RF No Action ibuprofen 600 mg tablet 600 mg PO Q8H PRN (Reason: pain) Qty: 30 0RF tramadol 50 mg tablet 50 mg PO Q6H PRN (Reason: pain) Qty: 10 0RF Referrals: Mora Marte ARNP [Primary Care Provider] - Stand Alone Forms: Patient Portal/API
--- NOTE | 2023-04-15 09:00 | DI.RAD.S_ITS ---
PROCEDURE: XR CHEST 1V INDICATIONS: golden, body aches TECHNIQUE: One view of the chest was acquired. COMPARISON: [facility], CR, XR CHEST 2V, 03/19/2023, 17:14. FINDINGS: Surgical changes and devices: None. Lungs and pleura: Lungs are clear. No pleural effusions or pneumothorax. Mediastinum: Mediastinal contours appear normal. Heart size is normal. Bones and chest wall: No suspicious bony lesions. Overlying soft tissues appear unremarkable. IMPRESSION: No acute cardiopulmonary findings Approved by: Prabhu Morales M.D. on 04/15/2023 at 9:13
--- NOTE | 2023-04-15 09:00 | DI.CT.S_ITS ---
PROCEDURE: CT ANGIO HEAD AND NECK with contrast, CT brain with and without contrast INDICATIONS: golden, keeping awake TECHNIQUE: Pre-contrast 4.5 mm thick sections acquired from the foramen magnum to the vertex. After the administration of intravenous contrast, 1 mm thick sections acquired from the aortic arch through the [place] of [place]. Post-contrast 4.5 mm thick sections then re-acquired from the foramen magnum to the vertex. MIP reformats of the arterial vasculature were utilized. For radiation dose reduction, the following was used: automated exposure control, adjustment of mA and/or kV according to patient size. COMPARISON: None. FINDINGS: Image quality: Excellent. BRAIN: CSF spaces: Ventricles are normal in size and shape. Basal cisterns are patent. No extra-axial fluid collections. Brain: No midline shift. No intracranial bleeds or masses. Morales-white matter interface appears intact. Skull and face: Calvarium and facial bones appear intact, without suspicious lesions. Orbits appear normal. Sinuses: Sinuses and mastoids are clear. HEAD CT ANGIOGRAPHY: Anterior circulation: Intracranial internal carotid arteries are normal in size and flow. The flow within the paired anterior cerebral arteries is normal and symmetric. The flow within the middle cerebral arteries is normal and symmetric. The anterior communicating artery is seen. No aneurysms are seen. Posterior circulation: Visualized portions of the vertebral arteries demonstrate normal caliber, and join to form a normal appearing basilar artery. Flow within the posterior cerebral arteries is normal and symmetric. No aneurysms are seen. NECK CT ANGIOGRAPHY: Carotid system: The great vessels demonstrate a conventional anatomy as they arise from the aortic arch. The origins of the common carotid arteries appear patent. The common carotid arteries demonstrate normal caliber and courses. The bifurcation regions are both widely patent. The internal carotid arteries demonstrate normal calibers and courses. Posterior circulation: The origins of the vertebral arteries both appear widely patent. The more superior extracranial portions of both vertebral arteries also demonstrate normal courses and calibers. They join to form a normal appearing basilar artery. Soft tissues: Visualized neck soft tissues demonstrate no suspicious abnormalities. Bones: No suspicious bony lesions. Visualized cervical spine appears normally aligned. IMPRESSION: Unremarkable CT brain with and without contrast. No intracranial hemorrhage or mass effect. Unremarkable CT angiogram head and neck without large vessel occlusion, aneurysm or vascular malformation Any quantitative measurements of stenosis were performed using NASCET criteria. Approved by: Prabhu Morales M.D. on 04/15/2023 at 9:16
[2023-04-15 09:14] LABS: Add Manual Diff / Slide Review NO; Basophils Absolute Auto 0 /uL (0-100); Basophils Percent Auto 0.7 % (0-2); Eosinophils Absolute Auto 100 /uL (0-450); Eosinophils Percent Auto 1.8 % (2-4); Hematocrit 42.1 % (36-46); Hemoglobin 14.4 g/dL (12.0-16.0); Lymphocytes Absolute Auto 1600 /uL (1100-4500); Mean Corpuscular HGB Conc 34.1 % (30-36); Mean Corpuscular Hemoglobin 29.9 PG (26-34); Mean Corpuscular Volume 87.7 fL (80-100); Monocytes Absolute Auto 300 /uL (0-900); Monocytes Percent Auto 6.8 % (3-14); Neutrophils Absolute Auto 2300 /uL (1500-7000); Neutrophils Percent Auto 52.7 % (50-75); Platelet Count 229 X10^3/uL (150-400); White Blood Cell Count 4.3 X10^3/uL (4.5-11.0)
[2023-04-15 09:23] LABS: Alanine Aminotransferase 38 IU/L (<35); Albumin 4.4 g/dL (3.5-5.0); Albumin Globulin Ratio 1.2 (1.0-2.8); Alkaline Phosphatase 78 U/L (38-126); Aspartate Aminotransferase 33 IU/L (14-36); BUN Creatinine Ratio 17.1 (6-22); Bilirubin Total 0.8 mg/dL (0.2-1.3); Blood Urea Nitrogen 12 mg/dL (7-17); Calcium 9.3 mg/dL (8.4-10.2); Carbon Dioxide 30 mmol/L (22-32); Chloride 103 mmol/L (98-107); Creatine Kinase 88 U/L (30-135); Estimated Glomerular Filt Rate > 60 mL/min (>60); Globulin 3.6 g/dL (1.7-4.1); Glucose 148 mg/dL (70-100); HEMOLYSIS < 15 (0-50); Lipase 127 U/L (23-300); Potassium 3.6 mmol/L (3.4-5.1); Sodium 140 mmol/L (137-145)
[2023-04-15 09:34] LABS: Troponin I < 0.012 ng/mL (0.01-0.034)
[2023-04-15] MEDS: KETOROLAC 30 MG/ML VIAL 15 MG IV (09:34)
[2023-04-15] MEDS: SODIUM CHLORIDE 0.9% 1,000 ML 1000 ML IV (09:35)
[2023-04-15] MEDS: METOCLOPRAMIDE 10 MG/2 ML INJ IV (11:46)
== END 2023-04-15 12:00 | disposition home or self-care (01) ==
PROVIDERS: Emergency Provider Emergency Medicine; Family Provider Registered Nurse; PCP Registered Nurse
DX: R51.9 Headache, unspecified (principal); M25.552 Pain in left hip; M25.511 Pain in right shoulder
CPT/HCPCS: 36415; 70496; 70498; 71045; 80053; 81003; 82550; 83690; 84484; 85025; 93005; 96374; 96375; 99284; J1885; J2765; Q9967

== ENCOUNTER → 2023-09-11 07:28 | Outpatient (CLI) | payer OTHER, MEDICAID, SELFPAY ==
[2023-09-11 09:01] LABS: Add Manual Diff / Slide Review NO; Basophils Absolute Auto 0 /uL (0-100); Basophils Percent Auto 0.3 % (0-2); Eosinophils Absolute Auto 0 /uL (0-450); Eosinophils Percent Auto 0.3 % (2-4); Hematocrit 41.1 % (36-46); Lymphocytes Absolute Auto 1600 /uL (1100-4500); Lymphocytes Percent Auto 37.4 % (25-40); Mean Corpuscular Volume 88.3 fL (80-100); Monocytes Absolute Auto 500 /uL (0-900); Neutrophils Absolute Auto 2200 /uL (1500-7000); Platelet Count 189 X10^3/uL (150-400); Red Blood Cell Count 4.66 X10^6/uL (4.0-5.2); Red Cell Distribution Width 13.6 % (11.6-14.8); White Blood Cell Count 4.2 X10^3/uL (4.5-11.0)
[2023-09-11 09:03] LABS: Hemoglobin A1C% w Est Avg Glu 6.4 % (4.0-6.0)
[2023-09-11 09:33] LABS: Alanine Aminotransferase 87 IU/L (<35); Albumin 4.4 g/dL (3.5-5.0); Albumin Globulin Ratio 1.2 (1.0-2.8); Alkaline Phosphatase 95 U/L (38-126); Aspartate Aminotransferase 51 IU/L (14-36); Bilirubin Total 0.9 mg/dL (0.2-1.3); Blood Urea Nitrogen 9 mg/dL (7-17); Calcium 9.3 mg/dL (8.4-10.2); Carbon Dioxide 29 mmol/L (22-32); Chloride 100 mmol/L (98-107); Cholesterol 176 mg/dL (140-199); Estimated Glomerular Filt Rate > 60 mL/min (>60); Globulin 3.7 g/dL (1.7-4.1); Glucose 102 mg/dL (70-100); HDL Cholesterol 78 mg/dL (40-60); HEMOLYSIS 16 (0-50); LDL Cholesterol Calculated 76 mg/dL (<100); Potassium 3.5 mmol/L (3.4-5.1); Sodium 136 mmol/L (137-145); Total Protein 8.1 g/dL (6.3-8.2); Triglycerides 110 mg/dL (35-150)
[2023-09-11 09:36] LABS: Free T4, Direct Thyroxine 1.04 ng/dL (0.78-2.19)
[2023-09-11 09:50] LABS: Thyroid Stimulating Hormone 3.92 uIU/mL (0.47-4.68)
[2023-09-11 10:12] LABS: Hepatitis B Surface Antigen NEGATIVE s/c (NEGATIVE)
[2023-09-11 10:26] LABS: Hep C Virus Ab w/Reflex Quant NEGATIVE s/c (NEGATIVE)
[2023-09-13 14:16] LABS: QuantiFERON Mitogen Value >10.00 IU/mL (.); QuantiFERON Nil Value 2.06 IU/mL (.); QuantiFERON TB Gold Plus Positive (Negative); QuantiFERON TB1 Ag Value 3.99 IU/mL (.); QuantiFERON TB2 Ag Value 3.14 IU/mL (.)
== END ==
PROVIDERS: Family Provider Registered Nurse; PCP Registered Nurse; Referring Provider Registered Nurse; Visit Provider Registered Nurse
DX: Z00.00 Encounter for general adult medical examination without abnormal findings (principal); Z13.1 Encounter for screening for diabetes mellitus; Z11.59 Encounter for screening for other viral diseases; Z13.29 Encounter for screening for other suspected endocrine disorder; Z13.220 Encounter for screening for lipoid disorders; R76.11 Nonspecific reaction to tuberculin skin test without active tuberculosis; Z13.0 Encounter for screening for diseases of the blood and blood-forming organs and certain disorders involving the immune mechanism
CPT/HCPCS: 36415; 80053; 80061; 83036; 84439; 84443; 85025; 86480; 86803; 87340

== ENCOUNTER → 2023-09-19 17:37 | Outpatient (CLI) | payer OTHER, MEDICAID, SELFPAY ==
[2023-09-19 18:07] LABS: INR 1.1 (0.9-1.3); Prothrombin Time 12.4 SECONDS (9.4-12.5)
== END ==
PROVIDERS: Family Provider Registered Nurse; PCP Registered Nurse; Referring Provider Registered Nurse; Visit Provider Registered Nurse
DX: Z22.7 Latent tuberculosis (principal); D72.819 Decreased white blood cell count, unspecified; R74.8 Abnormal levels of other serum enzymes; R73.03 Prediabetes
CPT/HCPCS: 85610; 87389

== ENCOUNTER 2024-02-04 06:56 | Emergency (ER) | payer OTHER, MEDICAID, SELFPAY ==
[2024-02-04 07:05] VITALS: BP 117/68; PULSE 75; RESP 16; TEMP 36.9; O2SAT 99
--- NOTE | 2024-02-04 07:19 | DI.RAD.S_ITS ---
PROCEDURE: XR CHEST 1V INDICATIONS: Shortness of breath TECHNIQUE: One view of the chest was acquired. COMPARISON: [facility], CR, XR CHEST 1V, 04/15/2023, 9:10. FINDINGS: Surgical changes and devices: None. Lungs and pleura: Lungs are clear. No pleural effusions or pneumothorax. Mediastinum: Mediastinal contours appear normal. Heart size is normal. Bones and chest wall: No suspicious bony lesions. Overlying soft tissues appear unremarkable. IMPRESSION: No acute cardiopulmonary abnormality is seen. Dictated by: Brown Faulkner M.D. on 02/04/2024 at 7:57 Approved by: Brown Faulkner M.D. on 02/04/2024 at 7:57
[2024-02-04 07:24] LABS: Add Manual Diff / Slide Review NO; Basophils Absolute Auto 0 /uL (0-100); Basophils Percent Auto 0.4 % (0-2); Eosinophils Absolute Auto 100 /uL (0-450); Eosinophils Percent Auto 1.2 % (2-4); Hematocrit 39.8 % (36-46); Hemoglobin 13.8 g/dL (12.0-16.0); Lymphocytes Absolute Auto 1400 /uL (1100-4500); Lymphocytes Percent Auto 18.5 % (25-40); Mean Corpuscular HGB Conc 34.6 % (30-36); Mean Corpuscular Hemoglobin 31.2 PG (26-34); Mean Corpuscular Volume 90.1 fL (80-100); Monocytes Absolute Auto 600 /uL (0-900); Neutrophils Absolute Auto 5500 /uL (1500-7000); Neutrophils Percent Auto 71.9 % (50-75); Platelet Count 243 X10^3/uL (150-400); Red Blood Cell Count 4.42 X10^6/uL (4.0-5.2); White Blood Cell Count 7.7 X10^3/uL (4.5-11.0)
[2024-02-04 07:25] LABS: HEMOLYSIS < 15 (0-50)
[2024-02-04 07:27] LABS: INR 1.1 (0.9-1.3); Prothrombin Time 12.7 SECONDS (9.4-12.5)
[2024-02-04 07:31] LABS: Alanine Aminotransferase 267 IU/L (<35); Albumin 4.1 g/dL (3.5-5.0); Alkaline Phosphatase 138 U/L (38-126); Aspartate Aminotransferase 194 IU/L (14-36); BUN Creatinine Ratio 16.7 (6-22); Bilirubin Total 0.7 mg/dL (0.2-1.3); Blood Urea Nitrogen 11 mg/dL (7-17); Calcium 9.1 mg/dL (8.4-10.2); Carbon Dioxide 28 mmol/L (22-32); Chloride 106 mmol/L (98-107); Estimated Glomerular Filt Rate > 60 mL/min (>60); Globulin 4.2 g/dL (1.7-4.1); Glucose 129 mg/dL (80-110); Potassium 3.4 mmol/L (3.4-5.1); Sodium 139 mmol/L (137-145); Total Protein 8.3 g/dL (6.3-8.2)
[2024-02-04 07:32] LABS: Lactate (Lactic Acid) 0.8 mmol/L (0.7-2.1)
--- NOTE | 2024-02-04 07:35 | PC.NURSE ---
Pt states that she has been feeling sick for about 2 weeks with a cough. States that she is now having epigastric cp that she rates as a 4/10 dull aching pain. Pt a&ox4. Answers all questions appropriately. Pt RR 16. O2 96% on RA. No significant work of breathing noted.
[2024-02-04 07:43] VITALS: PULSE 76; RESP 23; O2SAT 96
--- NOTE | 2024-02-04 07:47 | ED.CHESTPAIN ---
HPI - Chest Pain General Chief Complaint: Shortness of Breath/Dyspnea Stated Complaint: chest pain, cough Time Seen by Provider: 02/04/24 07:45 Source: patient Mode of arrival: Family Vehicle Limitations: language barrier (used room service manager service) History of Present Illness HPI narrative: 58-year-old female who states she was recently treated for TB for a period of time had a positive PPD but was asymptomatic otherwise. She states she got very itchy with the medication and stopped it. Patient comes in today with a week of chest pain radiating to her back, headaches, muscle aches, cough that has been nonproductive but feels congestive. She states she is had episodes where she coughs very hard and feels unwell. She has felt a little short of breath. States the cough has been nonproductive. Denies any nausea or vomiting, no issues with bowel movements she does describe some joint pain and headaches as well. Patient states she was on an medication for TB stopped it about 2-3 weeks ago was on it for about a month and a half. She describes pruritus with the medication was told she could stop it. States that she saw Infectious Disease if [place] after having a positive test for work. She states no other daily prescription medications no prior surgeries. No tobacco, alcohol or recreational drugs. She does follow with primary care, Roxanna Marte. Related Data Previous Rx's Medication Instructions Recorded ibuprofen 600 mg tablet 600 mg PO Q8H PRN pain #30 tabs 11/17/22 tramadol 50 mg tablet 50 mg PO Q6H PRN pain #10 tabs 04/01/23 oxycodone 5 mg tablet 5 mg PO Q6H PRN pain #10 tabs 04/15/23 codeine 10 mg-guaifenesin 100 mg/5 10 ml PO Q6H PRN cough #120 mL 02/04/24 mL oral liquid Allergies Allergy/AdvReac Type Severity Reaction Status Date / Time No Known Drug Allergies Allergy Verified 12/26/22 13:17 Review of Systems Review of Systems ROS Unobtainable: All systems reviewed & are unremarkable except as noted in HPI and below Patient History Social History Smoking Status: Never smoker Smoking Status: Never smoker alcohol intake frequency: 0-2 drinks per day Substance Use Type: does not use Exam Narrative Exam Narrative: GEN: well nourished, well appearing female, alert and oriented x 3, patient appears to be in mild distress. HEENT: Atraumatic, pupils are equal round reactive to light, extraocular movements are intact, nares are clear, there is no conjunctival pallor. Throat is clear without any exudates, erythema, tonsillar enlargement or uvular deviation HEART: Regular rate and rhythm without murmur, clicks, rubs. Pulses are equal in upper and lower extremities. No edema bilateral lower extremities. LUNGS:Lungs clear to auscultation, no wheezes, rales, crackles, chest moves symmetrically, no tachypnea. Patient has persistent dry cough on examination. ABD:bowel sounds normal, soft, non-tender, no guarding, rebound, rigidity, no masses noted, no hepatosplenomegaly :No CVA tenderness MSCL: Non-tender, no muscle atrophy, muscles strength 5/5 upper and lower extremities, full range of motion, normal gait NEURO:CN 2-12 intact, sensation normal Initial Vital Signs Initial Vital Signs: Vital Signs Temperature 98.5 F 02/04/24 07:05 Pulse Rate 75 02/04/24 07:05 Respiratory Rate 16 02/04/24 07:05 Blood Pressure 117/68 02/04/24 07:05 Pulse Oximetry 99 02/04/24 07:05 Oxygen Delivery Method Room Air 02/04/24 07:05 Course Orders Ordered: ED Orders 02/04/24 07:10 Complete Blood Count AUTO DIFF Stat Comprehensive Metabolic Panel Stat Lactate (Lactic Acid) Stat NT-proBNP (BNP-Adult 18+) Stat Prothrombin Time INR Stat Troponin I Stat 02/04/24 07:19 XR chest 1V Stat EKG-12 Lead Stat Measure peak expiratory flow ONCE RT Consult Eval and Treat NOW 02/04/24 07:29 Covid-19 + FLU A/B + RSV - PCR Stat 02/04/24 07:52 Lipase Stat Vital Signs Vital signs: Vital Signs - 8 hr 02/04/24 07:05 02/04/24 07:43 02/04/24 08:00 Temperature 98.5 F Pulse Rate 75 76 75 Respiratory Rate 16 23 19 Blood Pressure 117/68 Pulse Oximetry 99 96 95 Oxygen Delivery Method Room Air 02/04/24 08:01 02/04/24 08:01 Temperature Pulse Rate 74 Respiratory Rate 17 Blood Pressure 117/53 L Pulse Oximetry 96 Oxygen Delivery Method MDM - Chest Pain Lab Data 02/04/24 07:10 02/04/24 07:10 Labs: Lab Results 02/04/24 02/04/24 02/04/24 Range/Units 07:10 07:29 07:52 WBC 7.7 (4.5-11.0) X10^3/uL RBC 4.42 (4.0-5.2) X10^6/uL Hgb 13.8 (12.0-16.0) g/dL Hct 39.8 (36-46) % MCV 90.1 (80-100) fL MCH 31.2 (26-34) PG MCHC 34.6 (30-36) % RDW 14.0 (11.6-14.8) % Plt Count 243 (150-400) X10^3/uL Neut % (Auto) 71.9 (50-75) % Lymph % (Auto) 18.5 L (25-40) % [place] % (Auto) 8.0 (3-14) % Eos % (Auto) 1.2 L (2-4) % Baso % (Auto) 0.4 (0-2) % Neut # (Auto) 5500 (3325-3868) /uL Lymph # (Auto) 1400 (1987-8046) /uL [place] # (Auto) 600 (0-900) /uL Eos # (Auto) 100 (0-450) /uL Baso # (Auto) 0 (0-100) /uL PT 12.7 H (9.4-12.5) SECONDS INR 1.1 (0.9-1.3) Sodium 139 (137-145) mmol/L Potassium 3.4 (3.4-5.1) mmol/L Chloride 106 (98-107) mmol/L Carbon Dioxide 28 (22-32) mmol/L BUN 11 (7-17) mg/dL Creatinine 0.66 (0.52-1.04) mg/dL Estimated GFR > 60 (>60) mL/min BUN/Creatinine Ratio 16.7 (6-22) Glucose 129 H (80-110) mg/dL Lactate 0.8 (0.7-2.1) mmol/L Calcium 9.1 (8.4-10.2) mg/dL Total Bilirubin 0.7 (0.2-1.3) mg/dL AST 194 H (14-36) IU/L ALT 267 H (<35) IU/L Alkaline Phosphatase 138 H (38-126) U/L Troponin I < 0.012 (0.01-0.034) ng/mL NT-Pro-B Natriuret Pep < 20 (<125) pg/mL Total Protein 8.3 H (6.3-8.2) g/dL Albumin 4.1 (3.5-5.0) g/dL Globulin 4.2 H (1.7-4.1) g/dL Albumin/Globulin Ratio 1.0 (1.0-2.8) Lipase 135 (23-300) U/L SARS-CoV-2 (PCR) Negative (Negative) Influenza A (RT-PCR) Flu a negative (NEGATIVE) Influenza B (RT-PCR) Flu b negative (NEGATIVE) RSV (PCR) Negative (Negative) Imaging Data Chest x-ray: Radiologist's Impression: Close Chest X-Ray (Signed) Brown Faulkner - 02/04/24 Head/Neck CTA (Signed) Prabhu Morales - 04/15/23 Chest X-Ray (Signed) Prabhu Morales - 04/15/23 Knee X-Ray (Signed) Luis Johnston - 04/01/23 Chest X-Ray (Signed) Erna Parry - 03/19/23 Cervical Spine X-Ray (Signed) Cherelle Fierro - 01/04/23 Chest X-Ray (Signed) Prabhu Morales - 12/26/22 Lumbar Spine X-Ray (Signed) Cherelle Fierro - 11/17/22 Launch?[facility] [address] [address] XRay Report Signed Patient: Evelin Rodríguez MR#: [id number] : 1965 Acct:[id number] Age/Sex: 58 / F Date of Service: 02/04/24 Loc: ED Accession Number: [id number] Procedure: XR chest 1V Ordering Provider: Scarlet Barker D.O. PROCEDURE: XR CHEST 1V INDICATIONS: Shortness of breath TECHNIQUE: One view of the chest was acquired. COMPARISON: [facility], CR, XR CHEST 1V, 04/15/2023, 9:10. FINDINGS: Surgical changes and devices: None. Lungs and pleura: Lungs are clear. No pleural effusions or pneumothorax. Mediastinum: Mediastinal contours appear normal. Heart size is normal. Bones and chest wall: No suspicious bony lesions. Overlying soft tissues appear unremarkable. IMPRESSION: No acute cardiopulmonary abnormality is seen. Dictated by: Brown Faulkner M.D. on 02/04/2024 at 7:57 Approved by: Brown Faulkner M.D. on 02/04/2024 at 7:57 ECG Data Attestation: I personally reviewed and interpreted this ECG as follows: Prior ECG tracings: available for review Interpretation: Sinus rhythm rate of 70 W[place] 112 QRS [address] QTC [address] No acute ST elevation depression noted. Patient has prior from 04/15/2023 with no acute changes. [facility] Narrative Medical decision making narrative: 58-year-old female who presents with complaint of chest pain, shortness of breath, cough, subjective fevers without any hemoptysis for the past week. Patient's exam seems most consistent with viral upper respiratory infection but she notes she was recently on treatment for TB but was stopped secondary to side effects. Patient had positive PPD according to walk-in clinic notes and reportedly referred to Infectious Disease who she is on [place]. Patient had negative chest x-ray and is negative again today. Labs show normal white count of 7.7 hemoglobin of 13.8, platelets of 243 INR 1.1 normal creatinine, electrolytes and glucose of 129, AST is up at 194 ALT is 267 with alk-phos of 138 they were mildly elevated on prior visit and are slightly higher today, lipase is negative. Troponin is negative with a BNP less than 20. Chest x-ray shows no acute change. COVID/influenza/RSV is negative. Patient's chart shows her TB QuantiFERON gold was positive on 09/11/2023, x-rays were negative. I spoke with infectious disease doctor, Dr. Solo. He did not have patient's access to records currently but noted that patient was likely being treated for latent TB and likely had it stopped secondary to side effects. Would recommend repeat challenge at some point or alternatives and would have patient follow-up but does not require treatment today. Discussed symptoms seem most consistent with viral upper respiratory infection. Discussed with patient, she states she did have an abdominal ultrasound likely to evaluate her liver. She states she will follow-up we discussed likely current symptoms are viral upper respiratory we will give a prescription for cough medication but discussed return precautions. She does need follow up for potential latent TB and treatment. Discharge Plan Departure Patient Disposition: Home Clinical Impression: Upper respiratory infection Activity Restrictions/Additional Instructions: Follow-up with infectious disease, they would like to follow up with you to potentially try an alternative treatment. Contact information is below, please call to set up an appointment. It did discuss your symptoms today with the infectious disease doctor, you likely have an upper respiratory infection today. If you are having persistent fevers, cough, coughing up blood, new or worsening chest pain or shortness of breath you do need to be re-evaluated. You may take cough medication as prescribed. This medication can make you feel sleepy. Prescription sent to [facility] in [place]. Please return for worsening or persistent fevers increasing chest pain, increasing shortness of breath, coughing up blood, new swelling in her, lightheadedness or passing out or other new or concerning changes. Prescriptions: New codeine-guaifenesin 10-100 mg/5 mL liquid 10 ml PO Q6H PRN (Reason: cough) Qty: 120 0RF No Action ibuprofen 600 mg tablet 600 mg PO Q8H PRN (Reason: pain) Qty: 30 0RF oxycodone 5 mg tablet 5 mg PO Q6H PRN (Reason: pain) Qty: 10 0RF tramadol 50 mg tablet 50 mg PO Q6H PRN (Reason: pain) Qty: 10 0RF Referrals: Zackery Solo MD [Non-Staff] - Mora Marte ARNP [Primary Care Provider] - Stand Alone Forms: Patient Portal/API
[2024-02-04 07:49] LABS: NT-proBNP (BNP-Adult 18+) < 20 pg/mL (<125); Troponin I < 0.012 ng/mL (0.01-0.034)
[2024-02-04 07:59] LABS: Lipase 135 U/L (23-300)
[2024-02-04 08:00] VITALS: PULSE 75; RESP 19; O2SAT 95
[2024-02-04 08:01] VITALS: BP 117/53; PULSE 74; RESP 17; O2SAT 96
[2024-02-04 08:17] LABS: COVID-19 CEPHEID 4-PLEX PCR Negative (Negative); Influenza A - CEPHEID Flu A NEGATIVE (NEGATIVE); Influenza B - CEPHEID Flu B NEGATIVE (NEGATIVE); Respiratory Syncytial Virus Negative (Negative)
[2024-02-04 08:30] VITALS: BP 116/65; PULSE 70; RESP 20; O2SAT 96
[2024-02-04 09:00] VITALS: BP 110/60; PULSE 74; RESP 28; O2SAT 96
== END 2024-02-04 09:28 | disposition home or self-care (01) ==
PROVIDERS: Emergency Provider Emergency Medicine; Family Provider Registered Nurse; PCP Registered Nurse
DX: J06.9 Acute upper respiratory infection, unspecified (principal); R06.02 Shortness of breath; Z20.822 Contact with and (suspected) exposure to COVID-19
CPT/HCPCS: 0241U; 36415; 71045; 80053; 83605; 83690; 83880; 84484; 85025; 85610; 93005; 93010; 99284